=== PATIENT | male | born 1990 | race Two or more races ===

== ENCOUNTER 2016-10-30 19:17 | Emergency (ER) | payer SELFPAY ==
[~2016-10-30] VITALS: Ht 160 cm; Wt 63.5 kg
--- NOTE | 2016-10-30 19:30 | NUR ---
TO BED 1 AMBULATORY C/O INTERMITTENT HEADACHE, DIZZINESS, BILATERAL EYE PAIN X2 WEEKS. PT DENIES HEAD TRAUMA. PT AAOX4 NO ACUTE DISTRESS NOTED, RESP EVEN AND UNLABORED. PENDING ER MD ESPINOZA.
[2016-10-30] MEDS ORDERED: FLUORESCEIN SODIUM OPHTH 1 EA STRIP ONE (19:38)
[2016-10-30] MEDS ORDERED: TETRACAINE HCL/PF 0.5% UD 2 ML BOTTLE ONE (19:38)
[2016-10-30] MEDS ORDERED: KETOROLAC TROMETHAMINE INJ 30 MG/ML VIAL IV ONE (20:00)
[2016-10-30] MEDS ORDERED: diphenhydrAMINE HCL 50 MG/ML VIAL IV ONE (20:00)
[2016-10-30] MEDS ORDERED: FLUORESCEIN SODIUM OPHTH 1 EA STRIP OP ONE (20:00)
[2016-10-30] MEDS ORDERED: METOCLOPRAMIDE HCL 10 MG/2 ML VIAL IV ONE (20:00)
[2016-10-30] MEDS ORDERED: TETRACAINE HCL/PF 0.5% UD 2 ML BOTTLE EACHEYE ONE (20:00)
[2016-10-30] MEDS ORDERED: IV NS 0.9% 1,000 ML BAG IV ONE (20:00)
[2016-10-30] MEDS ORDERED: diphenhydrAMINE HCL 50 MG/ML VIAL ONE (20:11)
[2016-10-30] MEDS ORDERED: KETOROLAC TROMETHAMINE INJ 30 MG/ML VIAL ONE (20:11)
[2016-10-30] MEDS ORDERED: METOCLOPRAMIDE HCL 10 MG/2 ML VIAL ONE (20:12)
--- NOTE | 2016-10-30 20:21 | NUR ---
RN AT BEDSIDE TO MEDICATE PT.
--- NOTE | 2016-10-30 20:44 | NUR ---
PT VERBALIZE FEELING BETTER. ER [facility] MADE AWARE. PENDING DISPOSITION.
--- NOTE | 2016-10-30 21:01 | NUR ---
IV removed. Catheter intact and site benign. Pressure and 4x4 applied to site. No bleeding noted. Patient discharged to home in stable condition. Written and verbal after care instructions given. Patient verbalizes understanding of instruction. ambulatory with a steady gait noted. pt aaox4 no acute distress noted, resp even and unlabored. advice pt not to drive or operate any machinery due to pt was given benadryl. pt verbalize understanding.
[2016-10-30 21:04] VITALS: BP 134/75
== END 2016-10-30 21:04 | disposition home or self-care (01) ==
LOC: ER 19:18
DX: G43.909 Migraine, unspecified, not intractable, without status migrainosus (principal); H53.143 Visual discomfort, bilateral; F10.10 Alcohol abuse, uncomplicated; R79.89 Other specified abnormal findings of blood chemistry
CPT/HCPCS: 82962-TC; A4606; J1200; J1885; J2765; J7030; Z7610

== ENCOUNTER 2017-04-02 07:20 | Emergency (ER) | payer MEDICAID ==
[~2017-04-02] VITALS: Ht 165.1 cm; Wt 74.8 kg
--- NOTE | 2017-04-02 07:30 | NUR ---
SELF PRESENTS TO ED: LOWER ABDOMINAL AND EPIGASTRIC PAIN. ETOH +. A/OX 4. BREATHING EVEN AND UNLABORED. NO SOB. VITALS STABLE. SAFETY AND COMFORT MEASURES IN PLACE. AWAITING MD ORDERS.
--- NOTE | 2017-04-02 08:05 | NUR ---
MAINTAINABILITY ENGINEER AT BEDSIDE FOR BLOOD DRAW. URINE OBTAINED AND SENT TO LAB [facility].
--- NOTE | 2017-04-02 08:07 | NUR ---
PATIENT TAKEN TO CT VIA STRETCHER.
[2017-04-02 08:15] LABS: BASOPHILS # (AUTO) 0.1 /CMM (0.0-0.2); EOSINOPHILS % (AUTO) 0.3 % (0.0-6.0); HEMATOCRIT 41 % (39-51); HEMOGLOBIN 13.4 g/dL (13.5-17.5); LYMPHOCYTES # (AUTO) 0.2 /CMM (0.8-4.8); LYMPHOCYTES % (AUTO) 3.4 % (20.0-44.0); MEAN CORPUSCULAR HEMOGLOBIN 29 PG (26.0-33.0); MEAN CORPUSCULAR HGB CONC 33 g/dl (31.0-36.0); MEAN CORPUSCULAR VOLUME 89 fL (80-96); MONOCYTES # (AUTO) 0.3 /CMM (0.1-1.30); MONOCYTES % (AUTO) 5.7 % (2.0-12.0); NEUTROPHILS # (AUTO) 5.3 /CMM (1.8-8.9); NEUTROPHILS % (AUTO) 89.6 % (43.0-81.0); PLATELET COUNT (AUTO) 60 /CMM (150-450); RDW COEFFICIENT OF VARIATION 16.6 (11.5-15.0); RED BLOOD CELL COUNT(AUTO) 4.56 MIL/uL (4.5-6.0)
--- NOTE | 2017-04-02 08:15 | NUR ---
PATIENT RETURNED FROM CT.
[2017-04-02 08:16] LABS: APPEARANCE,URINE SL CLOUDY (CLEAR); BILIRUBIN,URINE 1+ (NEGATIVE); BLOOD, URINE TRACE-INTA Ery/uL (NEGATIVE); COLOR,URINE YELLOW (YELLOW); KETONES,URINE TRACE (NEGATIVE); LEUKOCYTE ESTERASE ,URINE NEGATIVE (NEGATIVE); NITRITE, URINE NEGATIVE (NEGATIVE); PROTEIN,URINE 2+ mg/dl (NEGATIVE); UGLUCOSE NEGATIVE (NEGATIVE); UROBILINOGEN,URINE 0.2 EU/dL (0.2)
[2017-04-02 08:21] LABS: CALCIUM, SERUM 8.8 mg/dL (8.5-10.1); CREATININE 0.6 mg/dL (0.6-1.3); POTASSIUM 3.9 mmol/L (3.5-5.1)
[2017-04-02 08:27] LABS: ALBUMIN 4.4 g/dL (3.4-5.0); BILIRUBIN,DIRECT 0.3 mg/dL (0.0-0.2); BILIRUBIN,TOTAL 1.2 mg/dL (0.2-1.0); TOTAL PROTEIN, SERUM 8.7 g/dL (6.4-8.2)
[2017-04-02 08:48] LABS: BACTERIA,URINE Few /HPF (None Seen); SQUAMOUS EPITHELIAL CELL,UR Few /HPF (None Seen); WBC,URINE 0-2 /HPF (0-3)
[2017-04-02 08:58] VITALS: BP 128/76
--- NOTE | 2017-04-02 09:00 | NUR ---
Patient discharged to home in stable condition. Written and verbal after care instructions given. Patient verbalizes understanding of instruction.
[2017-04-02 09:51] LABS: LYMPHOCYTES % (MANUAL) 3 % (16-48); MONOCYTES % (MANUAL) 5 % (0-11.0); NEUTROPHILS % (MANUAL) 92 (42-76)
== END 2017-04-02 09:00 | disposition home or self-care (01) ==
LOC: ER 07:22
DX: K29.20 Alcoholic gastritis without bleeding (principal); F10.10 Alcohol abuse, uncomplicated
CPT/HCPCS: 36415; 74176; 80048; 80076; 81001; 83690; 85025; 99285; A4606; Z7610; 81000-TC